=== PATIENT | female | born 1975 | race Caucasian/White ===

== ENCOUNTER 2016-11-15 11:24 | Day surgery (SDC) | payer OTHER ==
[2016-11-10 11:50] VITALS: BMI 27.1
--- NOTE | 2016-11-15 11:19 | HP ---
Admitting History and Physical - Admission Chief Complaint: retained IUD History of Present Illness: 41 y/o comes for iud removal. HAs had an attempt to remove in office but unsuccessful History Source: Patient Limitations to Obtaining History: No Limitations - Past Medical History MARKET CONSULTANT: No: Alzheimer's, CVA, Dementia, Migraine, Multiple Sclerosis, Peripheral Neuropathy, Parkinson's, Seizure, Syncope, TIA, Vertigo, Other Cardiovascular: No: AFIB, Aneurysm, Aortic Insufficiency, Aortic Stenosis, CAD, CHF, Deep Vein Thrombosis, HTN, Hyperlipdemia, [place], Mitral Insufficiency, Mitral Stenosis, Murmur, Pulmonary Hypertension, Other Pulmonary: No: Asthma, Bronchitis, Cancer, COPD, O2 Dependent, Pneumonia, Previously Intubated, Pulmonary Embolus, Pulmonary Fibrosis, Sleep Apnea, Other ...LMP: 10/27/16 Heme/Onc: No: Anemia, B12 Deficiency, Bleeding Disorder, Cancer, Current Chemotherapy, Current Radiation Therapy, Hemochromatosis, Hypercoaguable State, Myeloproliferative Synd, Sickle Cell Disease, Sickle Cell Trait, Thrombocytopenia, Other Infectious Disease: No: AIDS, C-Diff, Herpes Zoster, HIV, MRSA, STD's, Tuberculosis, VREF, Other Psych: No: Addictions, Anxiety, Bipolar, Depression, Panic, Psychosis, Schizophrenia, Other Musculoskeletal: No: Bursitis, Chronic low back pain, Hemiparesis, Hemiplegia, Osteoarthritis, Paraplegia, Other - Past Surgical History Past Surgical History: No: None, AAA Repair, AICD, Amputation, Appendectomy, Arthrosocopy, AV Fistula/Graft, Bariatric Surgery, Breast Biopsy, Bypass, CABG, Carotid Endarterectomy, Cataract Removal, Cholecystectomy, Colectomy, Colonoscopy, Colostomy, Craniotomy, , Cystectomy, Hernia Repair, Hysterectomy, Ileal Conduit, Ileosotomy, Joint Replacement, Kidney Transplant, Laminectomy, Liver Transplant, Mastectomy, Nephrectomy, Oopherectomy, Orchiectomy, Permanent Pacemaker, Prostatectomy, Splenectomy, Stent, Thoracotomy , TURP, Tonsillectomy, Tubal Ligation, Upper Endoscopy, Valve Replacement, Vasectomy, Vein Stripping/Ligation - Advance Directives Advance Directives: No: Living Will, Health Care Proxy, DNR, Organ Donor, Tissue Donor - Smoking History Smoking history: Never smoked Have you smoked in the past 12 months: No - Alcohol/Substance Use Hx Alcohol Use: No History of Substance Use: reports: None - Social History History of Recent Travel: No Home Medications - Allergies Allergies/Adverse Reactions: Allergies Allergy/AdvReac Type Severity Reaction Status Date / Time No Known Drug Allergies Allergy Verified 11/10/16 11:53 - Home Medications Home Medications: Ambulatory Orders NK [No Known Home Medication] 11/10/16 Review of Systems - Review of Systems Constitutional: reports: No Symptoms Eyes: reports: No Symptoms HENT: reports: No Symptoms Neck: reports: No Symptoms Cardiovascular: reports: No Symptoms Respiratory: reports: No Symptoms, Snoring Gastrointestinal: reports: No Symptoms Genitourinary: reports: No Symptoms Breasts: reports: No Symptoms Reported Musculoskeletal: reports: No Symptoms Integumentary: reports: No Symptoms Neurological: reports: No Symptoms Hematology/Lymphatic: reports: No Symptoms Psychiatric: reports: No Symptoms Assessment/Plan as above for hysteroscopy removal of iud
[2016-11-15 12:03] VITALS: BP 124/71; PULSE 78; TEMP 98.1
== END 2016-11-15 12:57 | disposition home or self-care (01) ==
LOC: JASU-SURG 11:24
PROVIDERS: ATTEND Obstetrics & Gynecology
PROC: 8E0UXY7 Examination of Female Reproductive System (ICD-10-PCS; principal; 2016-11-15)
DX: Z53.8 Procedure and treatment not carried out for other reasons (principal)
CPT/HCPCS: 84703

== ENCOUNTER → 2017-06-23 | Day surgery (SDC) | payer OTHER | END | disposition home or self-care (01) | LOC: FRADUS-SUR 13:16 | PROVIDERS: ATTEND Surgery Surgical Oncology | PROC: BH40ZZZ Ultrasonography of Right Breast (ICD-10-PCS; principal; 2017-06-23) | PROC: 0H9T3ZX Drainage of Right Breast, Percutaneous Approach, Diagnostic (ICD-10-PCS; 2017-06-23) | DX: N60.01 Solitary cyst of right breast (principal) | CPT/HCPCS: 76942-TC ==

== ENCOUNTER 2017-09-21 05:07 | Day surgery (SDC) | payer OTHER ==
[2017-09-20 12:27] VITALS: BMI 25.7
--- NOTE | 2017-09-21 08:08 | HP ---
Past Medical History - Primary Care Physician PCP:: Khushi Morales - Admission Chief Complaint: 41 yrs , requests for iud removal. History of Present Illness: h/o Mirena iud inserted 2 yrs ago after delivery. c/o mood changes & acne , hence requests for iud removal. 2 attempts done by differrent providers in the clinic , failed.Iud strings are not visualized 09/06/17 pelvic sono reveals iud in place in utero, History Source: Patient Limitations to Obtaining History: No Limitations - Past Medical History PROFESSIONAL SERVICES CONSULTANT: No: Alzheimer's, CVA, Dementia, Migraine, Multiple Sclerosis, Peripheral Neuropathy, Parkinson's, Seizure, Syncope, TIA, Vertigo, Other Cardiovascular: No: AFIB, Aneurysm, Aortic Insufficiency, Aortic Stenosis, CAD, CHF, Deep Vein Thrombosis, HTN, Hyperlipdemia, [place], Mitral Insufficiency, Mitral Stenosis, Murmur, Pulmonary Hypertension, Other Pulmonary: No: Asthma, Bronchitis, Cancer, COPD, O2 Dependent, Pneumonia, Previously Intubated, Pulmonary Embolus, Pulmonary Fibrosis, Sleep Apnea, Other Gastrointestinal: No: Ascites, Cancer, Constipation, Crohn's Disease, Diverticulitis, Diverticulosis, Esophageal Varices, Gastritis, GERD, GI Bleed, Hemorrhoids, Hiatal Hernia, Inflamatory Bowel Disease, Irritable Bowel Disease, Pancreatitis, Peptic Ulcer Disease, Ulcerative Colitis, Other Hepatobiliary: No: Cirrhosis, Cholelithiasis, Cholecystitis, Choledocholithiasis , Hepatitis A, Hepatitis B, Hepatitis C, Other Renal/: No: Renal Failure, Renal Inusuff, BPH, Cancer, Hematuria, Hemodialysis , Neurogenic Bladder, Renal Calculi, UTI, Other Reproductive: Yes: Other (since iud mirena , mh irreguar period). No: Ectopic , Endometriosis, Fibroids, PID, Polycystic Ovary Syndrome, Postmenopausal ...: 2 ...Para: 2 (2 05/07/03, 01/03/15 ) ...LMP: 09/15/17 Heme/Onc: No: Anemia, B12 Deficiency, Bleeding Disorder, Cancer, Current Chemotherapy, Current Radiation Therapy, Hemochromatosis, Hypercoaguable State, Myeloproliferative Synd, Sickle Cell Disease, Sickle Cell Trait, Thrombocytopenia, Other Infectious Disease: No: AIDS, C-Diff, Herpes Zoster, HIV, MRSA, STD's, Tuberculosis, VREF, Other Psych: No: Addictions, Anxiety, Bipolar, Depression, Panic, Psychosis, Schizophrenia, Other Rheumatology: No: Fibromyalgia, Gout, Lupus, Rheumatoid Arthritis, Sarcoidosis, Vasculitis, Other ENT: No: Allergic Rhinitis, Sinusitis, Other Endocrine: No: Kane's Disease, Delevan's Disease, Diabetes Insipidus, Diabetes Mellitus, Hyperparathyroidism, Hyperthyroidism, Hypothyroidism, Osteopenia, SIADH, Other Dermatology: Yes: Other (acne) - Past Surgical History Past Surgical History: Yes: None Hx Myomectomy: No Hx Transabdominal Cerclage: No - Smoking History Smoking history: Never smoked Have you smoked in the past 12 months: No - Alcohol/Substance Use Hx Alcohol Use: No History of Substance Use: reports: None - Social History History of Recent Travel: No Home Medications - Allergies Allergies/Adverse Reactions: Allergies Allergy/AdvReac Type Severity Reaction Status Date / Time No Known Drug Allergies Allergy Verified 09/21/17 07:05 - Home Medications Home Medications: Ambulatory Orders NK [No Known Home Medication] 11/10/16 Physical Exam - Maternity Vital Signs: Vital Signs Temperature 97.8 F 09/21/17 06:59 Pulse Rate 79 09/21/17 06:59 Respiratory Rate 18 09/21/17 06:59 Blood Pressure 127/68 09/21/17 06:59 O2 Sat by Pulse Oximetry (%) 100 09/21/17 07:06 Constitutional: Yes: Well Nourished Eyes: Yes: WNL HENT: Yes: WNL Neck: Yes: WNL Cardiovascular: Yes: WNL Lungs: Clear to auscultation Breast(s): Yes: WNL - Abdominal Exam/OB Fundal Height: 4 (ut av, ns, mobile, firm,nt, cx post 1st degree descent, hypertrophy, iud string not visualized, vagina mild cystocele & rectocele & lax perineum, Adnexa, both TALENT PROGRAM MANAGER, NT) - Physical Exam Musculoskeletal: Yes: WNL Extremities: Yes: WNL Edema: No Integumentary: Yes: WNL Deep Tendon Reflex Grade: Normal +2 ...Motor Strength: WNL Psychiatric: Yes: WNL - Labs Lab Results: Laboratory Tests 09/20/17 09/20/17 09/20/17 12:09 12:09 12:09 WBC 9.5 RBC 4.26 D Hgb 13.3 D Hct 40.1 D Plt Count 246 D PT with INR 11.80 INR 1.04 Sodium 137 Potassium 4.4 Chloride 104 BUN 11 D Creatinine 0.7 D Random Glucose 91 AST 11 L ALT 20 Beta HCG, Quant < 1.0 Urine Protein Urine Nitrite Ur Leukocyte Esterase 09/20/17 13:08 WBC RBC Hgb Hct Plt Count PT with INR INR Sodium Potassium Chloride BUN Creatinine Random Glucose AST ALT Beta HCG, Quant Urine Protein Negative Urine Nitrite Negative Ur Leukocyte Esterase Negative Problem List - Problems (1) IUD (intrauterine device) in place Code(s): Z97.5 - PRESENCE OF (INTRAUTERINE) CONTRACEPTIVE DEVICE (2) IUD complication Code(s): T83.9XXA - UNSP COMPLICATION OF GENITOURINARY PROSTH DEV/GRFT, INIT Assessment/Plan retained iud , in place in utero, s/p failure attempts at removal as outpatient Plan iud removal under hysteroscopic guidance
[2017-09-21] MEDS ORDERED: ceFAZolin SODIUM 1 GM VIAL IVPB ONE (08:27)
[2017-09-21] MEDS ORDERED: ACETAMINOPHEN 325 MG TABLET (FP) PO PRN (08:42)
[2017-09-21] MEDS ORDERED: IBUPROFEN 400 MG TABLET (FP) PO PRN (08:42)
--- NOTE | 2017-09-21 09:06 | OP ---
Operative Note - Note: Operative Date: 09/21/17 Pre-Operative Diagnosis: iud in utero, s/p failed attempts to remove as outpatient Operation: D&C, Hysteroscopy, Removal of IUD Findings: Ut AV NS, Endocervical length 9 cm. cx hypertrphy, 1st degree descent adnexa painter helper spray vagina small cystocele & rectocele & lax perineum Mirena IUD seen in utero in cavity, removed Surgeon: Khushi Morales Anesthesiologist/UROLOGIC SURGEON: Sinan Thakkar Anesthesia: General Specimens Removed: IUD. EMC Estimated Blood Loss (mls): 2 Operative Report Dictated: Yes
[2017-09-21 11:12] VITALS: BP 118/67; PULSE 71
[2017-09-21 11:43] VITALS: TEMP 98
--- NOTE | 2017-09-21 14:28 | OP ---
DATE OF OPERATION: 09/21/2017 PREOPERATIVE DIAGNOSIS: Retained intrauterine device with failure of removal as an outpatient. OPERATION DONE: Diagnostic hysteroscopy, removal of intrauterine device and dilatation and curettage. SURGEON: Khushi Morales MD MOLDER OPERATOR: Sinan Thakkar CRNA ANESTHESIA: General. FINDINGS: This is a 41-year-old 2, para 2-0-0-2. LMP was September 15, 2017. She presents for removal of IUD. Two attempts were made in the clinic by different providers. The strings were not visualized from the cervix and the attempts failed. A sonogram shows the IUD is in place in the uterus. The patient has complications including mood changes, acne and irregular periods. She requested removal. She has a history of Mirena put in after her last delivery in 2014. DESCRIPTION OF PROCEDURE: The patient was taken to the operating room, placed on the table in lithotomy position and general anesthesia. The prepuce, perineum and vagina were painted with Betadine and draped in usual manner. A timeout was done. Pelvic examination was done. The uterus was anteverted, normal size. Cervix was posterior. The adnexa were not palpable. She had first-degree descent of the cervix and a minimal cystocele and rectocele, lax perineum . A weighted speculum was put in. The anterior lip of the cervix was held with a single-tooth tenaculum. Uterocervical length was 9 cm. The cervix was dilated with a number 5 dilator. Then, the Storz diagnostic hysteroscope was introduced. The cervix and endocervix were normal. The IUD was high in the uterus and iud wings could be seen, laterally towards cornual ends of the uterine cavity. Hysteroscope was removed. The cervix was dilated up to a number 10 dilator and then, with a Padmini clamp, the IUD was removed. Endometrial curettings were then done. The patient tolerated the procedure well and she was transferred to the recovery room in stable condition. She received 1 g of IV Ancef intraoperatively. Hien [id number] MTDD
--- NOTE | 2017-09-22 19:11 | PATH ---
Surgical Pathology Report Patient Name: FRANCY FOFANA [facility]. Rec. #: [id number] /Age/Gender: 1975 (Age: 41) / F Account: [id number] Location: [facility] SUR[facility]ICAL Taken: 09/21/2017 Received: 09/21/2017 Reported: 09/22/2017 Physicians: Khushi Morales M.D. Specimen(s) Received A: IUD B: ENDOMETRIAL CURETTINGS Clinical History Mirena IUD in utero-strings not visualized requires removal Final Diagnosis A. INTRAUTERINE DEVICE (IUD), REMOVAL: INTRAUTERINE DEVICE. MACROSCOPIC DIAGNOSIS. B. ENDOMETRIAL CURETTINGS, DILATATION AND CURETTAGE: FRAGMENTS OF INACTIVE ENDOMETRIUM AND DECIDUALIZED STROMA CONSISTENT WITH EXOGENOUS HORMONE EFFECT, AND BENIGN ENDOCERVICAL TISSUE. Electronically Signed Julee Vela M.D. Gross Description A. Received fresh labeled "IUD," is a 3 cm in length T-shaped device, consistent with an IUD. The specimen has a string attached. No soft tissue is present. No sections are submitted, gross only. B. Received in formalin labeled "endometrial curettings," is a 1.4 x 1.0 x 0.2 cm aggregate of guzman-brown soft tissue fragments. The formalin is filtered and the specimen is entirely submitted in one cassette. 09/21/201709/21/2017
== END 2017-09-21 11:00 | disposition home or self-care (01) ==
LOC: JASU-SURG 05:07
PROVIDERS: ATTEND Obstetrics & Gynecology
PROC: 0UC98ZZ Extirpation of Matter from Uterus, Via Natural or Artificial Opening Endoscopic (ICD-10-PCS; principal; 2017-09-21 08:00)
DX: T83.89XA Other specified complication of genitourinary prosthetic devices, implants and grafts, initial encounter (principal)
CPT/HCPCS: 88300-TC; 88305-TC; 94760